=== PATIENT | female | born 1975 | race Caucasian/White ===

== ENCOUNTER 2023-12-03 05:25 | Day surgery (SDC) | payer OTHER ==
[~2023-12-03] VITALS: Ht 170.2 cm; Wt 80.0 kg
[~2023-12-03 05:25] MED LIST: ALLEGRA-D 24 H1 EACH PO; BIRTH CONTROL PILL PO; DAILY VALUE1 EACH PO; FISH OIL 1,0001 EAC3 PO; GABAPENTIN300 MG PO; K-TAB ER20 MEQ PO; LACTATED RINGER'S 1,000 ML IV SCH; LISINOPRIL-HCT1 EACH PO; LISINOPRIL10 MG PO; MAG DELAY64 M1 PO; MELATONIN10 M2 PO; NALTREXONE HCL50 MG PO; NORCO 5-325 TA1 EACH PO; OMEPRAZOLE20 M1 PO; PERCOCET 5-3251 EACH PO; SERTRALINE HCL50 MG PO; VITAMIN B COMP1 EACH PO; VITAMIN E1000 UNI2 PO
[2023-12-03 06:07] VITALS: BP 159/68
[2023-12-03] MEDS ORDERED: dexmedeTOMIDine HCl 200 MCG/2 ML VIAL ONE (06:36)
[2023-12-03] MEDS ORDERED: DEXAMETHASONE SOD PHOS 4 MG/ML VIAL ONE ×2 (06:36→06:58)
[2023-12-03] MEDS ORDERED: LIDOCAINE HCL 2% 5 ML SDV ONE (06:37)
[2023-12-03] MEDS ORDERED: propofoL 200 MG/20 ML VIAL ONE (06:37)
[2023-12-03] MEDS ORDERED: Ropivacaine HCl 0.5% 30 ML VIAL ONE (06:37)
[2023-12-03] MEDS ORDERED: ondansetron HCL 4 MG/2 ML VIAL ONE (06:58)
[2023-12-03] MEDS ORDERED: CEFAZOLIN SODIUM 2 GM/20 ML SYR IV SCH (07:00)
[2023-12-03] MEDS ORDERED: LIDOCAINE HCL 1% 5 ML SDV INJ ONE (07:00)
[2023-12-03] MEDS ORDERED: IBLOOD GLUCOSE TEST STRIP 1 EA TEST VI PRN ×2 (07:00→07:45)
[2023-12-03] MEDS ORDERED: ACETAMINOPHEN 1,000 MG/100 ML VIAL ONE (07:03)
[2023-12-03] MEDS ORDERED: fentaNYL citrate 100 MCG/2 ML VIAL ONE (07:09)
[2023-12-03] MEDS ORDERED: HYDROCODONE/ACETA 5/325 TAB PO PRN (07:15)
--- NOTE | 2023-12-03 07:29 | NUR ---
PT GONE FOR PROCEDURE. NO FAMILY PRESENT. PROVIDED PRAYER.
[2023-12-03] MEDS ORDERED: HYDROCODON-ACE1 EA10 PO (07:33)
[2023-12-03] MEDS ORDERED: ondansetron HCL 4 MG/2 ML VIAL IV PRN (07:45)
[2023-12-03] MEDS ORDERED: fentaNYL citrate 50 MCG/ML SDV IV PRN (07:45)
[2023-12-03] MEDS ORDERED: NALOXONE HCL 0.4 MG SYR IV PRN (07:45)
[2023-12-03] MEDS ORDERED: droPERidol 5 MG/2 ML VIAL IV PRN (07:45)
[2023-12-03] MEDS ORDERED: KETOROLAC TROMETHAMINE 30 MG/ML VIAL IV PRN (07:45)
--- NOTE | 2023-12-03 07:45 | NUR ---
12/03/23 0745 Jasmin Hobbs 0734 PT TO PACU AWAKE AND ALERT DENIES PAIN AND NAUSEA, ICE TO LT FOOT.
[2023-12-03 07:57] VITALS: BP 146/72
--- NOTE | 2023-12-03 08:00 | NUR ---
LE 0755: PT IS BACK TO DS FROM PACU. SHE IS AWAKE AND ALERT. SHE HAS NO COMPLAINTS OF PAIN THE LEFT FOOT IS COMPLETELY NUMB AND ABSENT OF MOTION. CALL LIGHT WITHIN REACH. WATER ON BEDSIDE TABLE. DC CRITERIA IS REVIEWED IN DETAIL.
[2023-12-03 09:00] VITALS: BP 141/76
--- NOTE | 2023-12-03 09:02 | NUR ---
PT HAS TOLERATED WATER AND CRACKERS. MOM IS AT THE BEDSIDE. PT REPORTS SHE WOULD LIKE TO GET UP TO THE BATHROOM.
--- NOTE | 2023-12-03 09:28 | NUR ---
LE 0906: PT IS ASSISTED UP OOB WITH STANDBY ASSIST WITH A PIVOT TRANSFER TO THE COMMODE. SHE IS ABLE TO VOID 100MLS OF DARK YELLOW URINE. SHE PIVOTS HER SELF BACK TO BED. SHE IS INDICATES THAT SHE WOULD LIKE TO GO HOME. SHE IS EDUCATED ON HOW TO BEST GET DRESSED AN TO TURN ON HER CALL LIGHT WHEN READY. LE 0916: PT AND MOM ARE GIVEN VERBAL AND WRITTEN DC INSTRUCTIONS. QUESTIONS ARE ASKED AND ANSWERED. LE 0920: PT IS TAKEN TO PERSONAL VEHICLE VIA WC. SHE TRANSFERS HERSELF WITHOUT ISSUES.
--- NOTE | 2023-12-05 08:17 | OR ---
[facility] [address], [place] [address] Signed DATE OF OPERATION: 12/03/2023 SURGEON: Muna Hobbs MD PREOPERATIVE DIAGNOSIS: Zone 2 left fifth metatarsal fracture. POSTOPERATIVE DIAGNOSIS: Zone 2 left fifth metatarsal fracture. PROCEDURE PERFORMED: Open reduction and internal fixation of left fifth metatarsal. STUDENT ACCOUNTS MANAGER: None. ANESTHESIA: General. BLOOD LOSS: Minimal. IMPLANTS: 4.0 x 46 Synthes headless screw. BRIEF HISTORY: Mary Alice is a 48-year-old female who injured her foot. She elected nonoperative treatment, but her fracture showed no evidence of healing. Risks, benefits, and alternatives of surgery were discussed with her and she elected to proceed. PROCEDURE IN DETAIL: Once consent was obtained she was taken to the operating room after adequate anesthesia, she was placed on operating table. All downside pressure points were well padded. Hip bump was placed. The leg was then prepped and draped in a standard sterile fashion. The tip of the metatarsal was identified on the image intensifier and a 1 cm incision was made proximal to this, carried through skin and subcutaneous tissue. The guide pin for the Synthes set was then advanced from the tip of the fifth metatarsal engaging the canal of fifth metatarsal and advanced distally. This was then overdrilled using the 2.7 drill. The guide pin was measured to 46. A 46 screw was placed over the guide pin and advanced until it was well-seated completely inside the metatarsal head. Excellent Electronically Signed By: MUNA HOBBS MD 12/05/23 0817 PATIENT NAME: MARY ALICE ZHOU OPERATIVE REPORT DATE OF : 71 REPORT #: [id number] PHYSICIAN: MUNA HOBBS MD PCP: FRANSISCO NEWBERRY REPORT IS CONFIDENTIAL AND NOT TO BE RELEASED WITHOUT AUTHORIZATION [facility] [address], [place] [address] Signed compression and alignment were obtained. The guide pin was removed. The wound was cleansed and closed with 3-0 Monocryl, Steri-Strips and LiquiBand. The wound was dressed with Allevyn and an Mikey wrap. She tolerated the procedure well. All sponge, needle, and instrument counts were correct. Muna Hobbs MD BA/AUSTINL /[id number] Copies: ~ Electronically Signed By: MUNA HOBBS MD 12/05/23 0817 PATIENT NAME: MARY ALICE ZHOU OPERATIVE REPORT DATE OF : 71 REPORT #: [id number] PHYSICIAN: MUNA HOBBS MD PCP: FRANSISCO NEWBERRY REPORT IS CONFIDENTIAL AND NOT TO BE RELEASED WITHOUT AUTHORIZATION
== END 2023-12-03 09:20 | disposition home or self-care (01) ==
LOC: DS 05:25
PROVIDERS: ATTEND Specialist
PROC: 0QSP04Z Reposition Left Metatarsal with Internal Fixation Device, Open Approach (ICD-10-PCS; principal; 2023-12-03 07:00)
DX: S92.352A Displaced fracture of fifth metatarsal bone, left foot, initial encounter for closed fracture (principal); W18.30XA Fall on same level, unspecified, initial encounter
CPT/HCPCS: 01480; 73620; 84703; C1713; C1769; J0131; J0690; J1100; J2001; J2405; J2704; J2795; J3010; J7121